=== PATIENT | male | born 1985 | race Caucasian/White ===

== ENCOUNTER 2018-11-12 17:07 | Inpatient (IN) | payer BC, OTHER ==
[~2018-11-12] VITALS: Ht 185.4 cm; Wt 109.4 kg
[2018-11-12] VITALS (7 sets, daily range): BP systolic 120–133; BP diastolic 63–69; PULSE 54–62; RESP 17–23; Ht 185.4 cm; Wt 109.4 kg
[~2018-11-12 17:07] MED LIST: CEFAZOLIN 1 GM INJ ONE; DESFLURANE 15 MIN ONE; ISOFLURANE 15 MIN ONE; SUCCINYLCHOLINE CHLORIDE 100 MG/5 ML SYG IV ONE
[2018-11-12] MEDS ORDERED: SOD CHLORIDE 0.9% 1,000 ML IV STA (19:43)
--- NOTE | 2018-11-12 20:49 | ERD ---
ER Documentation Chief Complaint Chief Complaint L/R/Q abd pain x yesterday denies pain with urination HPI Patient is a 32-year-old male presents to the ED with sudden onset sharp 7/10 right lower quadrant abdominal pain since last night. Patient states pain is mostly localized to his right lower quadrant but does radiate towards his periumbilical region. He does report one episode of nonbilious non-vomiting this morning. He also had a low-grade fever which he took Motrin for. He does report a history of left inguinal hernia repair several years prior but otherwise has no other abdominal surgeries. He tried smoking marijuana this morning to help with his pain with minimal relief. Patient also reports using cocaine 2 days ago but otherwise denies any illicit drug use. Denies any chest pain, shortness of breath, diarrhea, constipation, urinary frequency, urgency or any other symptoms. Patient last ate leftover [place] food this morning at 7:30 AM. ROS All systems reviewed and are negative except as per history of present illness. Allergies Allergies: Coded Allergies: No Known Drug Allergies (Verified Allergy, Unknown, 06/19/07) PMhx/Soc Medical and Surgical Hx: pt denies Medical Hx History of Surgery: Yes (L inguinal hernia) Anesthesia Reaction: No Hx Alcohol Use: Yes (socially) Hx Substance Use: Yes (cocaine rarely, marijuana) Hx Tobacco Use: No Smoking Status: Never smoker Physical Exam Vitals Vital Signs Date Temp Pulse Resp B/P (MAP) Pulse Ox O2 O2 Flow FiO2 Time Delivery Rate 11/12/18 99.7 119 18 159/73 95 17:10 (101) Physical Exam Const: + Appears uncomfortable. Head: Atraumatic Eyes: Normal Conjunctiva ENT: Normal External Ears, Nose and Mouth. Neck: Full range of motion. No meningismus. Resp: Clear to auscultation bilaterally Cardio: Regular rate and rhythm, no murmurs Abd: + Moderate right lower quadrant tenderness, with rebound and guarding. Positive McBurney's point tenderness. Negative Rovsing's. No distention. Soft. Hyperactive bowel sounds. Skin: No petechiae or rashes Back: No midline or flank tenderness Ext: No cyanosis, or edema Neur: Awake and alert Psych: Normal Mood and Affect Result Diagram: 11/12/182010 Results 24 hrs Laboratory Tests Test 11/12/18 19:41 11/12/18 20:11 Urine Color YELLOW Urine Clarity CLEAR Urine pH 6.0 Urine Specific [place] 1.028 Urine Ketones NEGATIVE mg/dL Urine Nitrite NEGATIVE mg/dL Urine Bilirubin NEGATIVE mg/dL Urine Urobilinogen NEGATIVE mg/dL Urine Leukocyte Esterase NEGATIVE [place]/ul Urine Hemoglobin NEGATIVE mg/dL Urine Glucose NEGATIVE mg/dL Urine Total Protein NEGATIVE mg/dl White Blood Count 15.4 10^3/ul Red Blood Count 5.24 10^6/ul Hemoglobin 14.9 g/dl Hematocrit 44.6 % Mean Corpuscular Volume 85.1 fl Mean Corpuscular Hemoglobin 28.4 pg Mean Corpuscular Hemoglobin Concent 33.4 g/dl Red Cell Distribution Width 12.9 % Platelet Count 266 10^3/UL Mean Platelet Volume 10.6 fl Immature Granulocytes % 0.600 % Neutrophils % 77.9 % Lymphocytes % 9.4 % Monocytes % 11.2 % Eosinophils % 0.4 % Basophils % 0.5 % Nucleated Red Blood Cells % 0.0 /100WBC Immature Granulocytes # 0.090 10^3/ul Neutrophils # 12.0 10^3/ul Lymphocytes # 1.5 10^3/ul Monocytes # 1.7 10^3/ul Eosinophils # 0.1 10^3/ul Basophils # 0.1 10^3/ul Nucleated Red Blood Cells # 0.0 10^3/ul Current Medications Medications Dose Sig/Maxwell Start Time Status Last (Trade) Ordered Route PRN Stop Time Admin Dose Reason Admin Sodium 1,000 ml @ Q1H STAT 11/12/18 DC 11/12/18 Chloride 1,000 mls/hr IV 19:43 20:08 11/12/18 20:42 Piperacillin 100 ml @ ONCE ONCE 11/12/18 11/12/18 Sod/ 200 mls/hr IVPB 21:00 20:59 Tazobactam 11/12/18 21:29 Sod Ondansetron 2 mg ONCE STAT 11/12/18 DC 11/12/18 HCl (Zofran IV 20:59 21:06 Inj) 11/12/18 21:02 Morphine 2 mg ONCE STAT 11/12/18 DC 11/12/18 Sulfate IV 20:59 21:06 (morphine) 11/12/18 21:02 Procedures/MDM EMERGENT LABS AND DIAGNOSTIC STUDIES: Lab Results above were reviewed and interpreted by me as below. Lab Results above were reviewed and interpreted by me as below. CBC: WBC of 15.4 with a left shift. CMP: no e/o severe acidosis, alkalosis, renal failure, diabetic ketoacidosis, liver disease Urine: no e/o acute infection or hematuria PT/PTT: pending Otherwise within normal limits, unremarkable or as documented above. Radiology Results as interpreted by Radiology: PROCEDURE: CT abdomen and pelvis without contrast. CLINICAL INDICATION: 32-year-old male. Right lower quadrant abdominal pain. TECHNIQUE: CT scan of the abdomen and pelvis without contrast was performed on a multi-slice CT scanner utilizing axial imaging from the lung bases through the pubis symphysis. One or more the following does reduction techniques were utilized: Automated exposure control, adjustment of the mA/ or kV according to patient's size, or use of iterative reconstruction technique. Sagittal and coronal reformatted images were made. DICOM images are available for review. The CTDIvol is 21.22 mGy and the DLP is 13 15.28 mGycm. COMPARISON: None. FINDINGS: CT abdomen Visualized lung bases: Clear. No significant pleural or pericardial effusion. Liver: Limited evaluation without IV contrast. 11.3 mm low attenuation mass medial segment 6. Gallbladder and bile ducts: No calcified gallstones or pericholecystic fluid. No biliary ductal dilatation. Spleen: Normal appearance. Pancreas: Normal appearance. No ductal dilatation. No mass. No peripancreatic stranding. Adrenal glands: Normal appearance. Kidneys: No hydronephrosis or renal stones. Vasculature: No abdominal aortic aneurysm. Calcified plaque absent. Negative IVC. Lymph nodes: No adenopathy. GI: No evidence of obstruction or bowel wall thickening. Peritoneal cavity: No free fluid or free air. CT pelvis GI: Negative terminal ileum. Abnormal appendix. 2 appendicoliths, largest measuring 8.3 mm. Appendix measures 10.3 mm in diameter with periappendiceal inflammatory changes. No abscess or drainable fluid collection. Sigmoid diverticulosis. Negative rectum. : Genitourinary structures are unremarkable. Peritoneal cavity: No free fluid or loculated fluid collections. Lymph nodes: Small lymph nodes adjacent to the inflamed appendix. Osseous structures: No lytic or blastic lesions. IMPRESSION: 1. Acute appendicitis. No evidence of perforation, abscess or drainable fluid collection. Critical results given to Dr. Higgins at [facility] ED at 2 hours P S T. Nursing Notes Reviewed. Previous Medical Records requested via the Electronic Health Record. EMERGENCY DEPARTMENT COURSE / MEDICAL DECISION MAKING: Patient is a 32-year-old male who presents to the ED with complaints of right lower quadrant pain suspicious for appendicitis. CBC shows a white count of 15.4. Remaining labs including CMP, UA was insignificant, coag panel is pending. CT of the abdomen pelvis confirmed acute appendicitis, no perforation or abscess. IV line was established and patient was started on IV fluids, Zofra n, morphine as well as Zosyn for empiric coverage. I discussed this with my supervising physician, Dr. Farris who will admit the patient to the admitting physician. I also discussed the case with the surgeon, Dr. Heath who will operate on the patient later this evening. Patient is stable at time of admission. Departure Diagnosis: Primary Impression: Acute appendicitis Condition: ZOE Marinelli PA-C Nov 12, 2018 20:49
[2018-11-12] MEDS ORDERED: ONDANSETRON 4 MG INJ IV STA (20:59)
[2018-11-12] MEDS ORDERED: morphine 2 MG INJ IV STA (20:59)
[2018-11-12] MEDS ORDERED: PIPER-TAZO 3.375 GM IV (PMX) 100 ML IVPB ONE (21:00)
[2018-11-12] MEDS ORDERED: SOD CHLORIDE 0.9% 1,000 ML IV SCH (21:17)
--- NOTE | 2018-11-12 21:19 | HP ---
Date/Time of Note Date/Time of Note DATE: 11/12/18 TIME: 21:19 Assessment/Plan VTE Prophylaxis SCD applied (from Nsg): Yes Pharmacological prophylaxis: NA/contraindicated Pharm contraindication: low risk/ambulating Lines/Catheters IV Catheter Type (from Nrsg): Saline Lock Assessment/Plan Hospital Course This is a 32-year-old male being admitted to the [facility] floor for: #1 acute appendicitis: The patient n.p.o., Zosyn IV every 6 hours, normal saline for fluid management. Dr. Heath of general surgery has been consulted, will await further recommendations. #2 obesity: We will check hemoglobin A 1C, lipid panel, TSH #3 illicit drug use: Recommend cessation #4 DVT GI prophylaxis: SCDs, no GI prophylaxis indicated further treatment strategy will be implemented as per the clinical course Result Diagram: 11/12/18201011/12/182010 Results 24hrs Laboratory Tests Test 11/12/18 19:41 11/12/18 20:11 Urine Color YELLOW Urine Clarity CLEAR Urine pH 6.0 Urine Specific [place] 1.028 Urine Ketones NEGATIVE Urine Nitrite NEGATIVE Urine Bilirubin NEGATIVE Urine Urobilinogen NEGATIVE Urine Leukocyte Esterase NEGATIVE Urine Hemoglobin NEGATIVE Urine Glucose NEGATIVE Urine Total Protein NEGATIVE White Blood Count 15.4 H Red Blood Count 5.24 Hemoglobin 14.9 Hematocrit 44.6 Mean Corpuscular Volume 85.1 Mean Corpuscular Hemoglobin 28.4 L Mean Corpuscular Hemoglobin Concent 33.4 Red Cell Distribution Width 12.9 Platelet Count 266 Mean Platelet Volume 10.6 H Immature Granulocytes % 0.600 H Neutrophils % 77.9 H Lymphocytes % 9.4 L Monocytes % 11.2 H Eosinophils % 0.4 Basophils % 0.5 Nucleated Red Blood Cells % 0.0 Immature Granulocytes # 0.090 H Neutrophils # 12.0 H Lymphocytes # 1.5 Monocytes # 1.7 H Eosinophils # 0.1 Basophils # 0.1 Nucleated Red Blood Cells # 0.0 Sodium Level 142 Potassium Level 4.1 Chloride Level 103 Carbon Dioxide Level 29 Anion Gap 10 Blood Urea Nitrogen 14 Creatinine 1.07 Est Glomerular Filtrat Rate mL/min > 60 Glucose Level 101 Calcium Level 9.9 Total Bilirubin 0.7 Direct Bilirubin 0.00 Indirect Bilirubin 0.7 Aspartate Amino Transf (AST/SGOT) 34 Alanine Aminotransferase (ALT/SGPT) 37 Alkaline Phosphatase 91 Total Protein 7.7 Albumin 4.6 Globulin 3.10 Albumin/Globulin Ratio 1.48 Lipase 193 HPI/ROS Admit Date/Time Admit Date/Time Hx of Present Illness cc: right lower ab pain Patient is a 32-year-old male presents to the ED with sudden onset sharp 7/10 right lower quadrant abdominal pain since last night. Patient states pain is mostly localized to his right lower quadrant but does radiate towards his periumbilical region. He does report one episode of nonbilious non-vomiting this morning. He also had a low-grade fever which he took Motrin for. He does report a history of left inguinal hernia repair several years prior but otherwise has no other abdominal surgeries. He tried smoking marijuana this morning to help with his pain with minimal relief. Patient also reports using cocaine 2 days ago but otherwise denies any illicit drug use. Denies any chest pain, shortness of breath, diarrhea, constipation, urinary frequency, urgency or any other symptoms. Patient last ate leftover [place] food this morning at 7:[address] scan of the abdomen pelvis was performed which confirmed acute appendicitis. Dr. Heath of general surgery has been consulted. Last cocaine use on Tuesday. alllergies: nkda meds: none ROS Const: As per HPI Eyes : No pain discharge or redness or change in visual acuity ENT: No pain, sore throat, congestion, congestion, dysphagia or discharge Respiratory: No shortness of breath, cough, sputum, wheezing, or pleuritic pain Cardiovascular: No chest pain, palpitation, PND, or edema GI : as per HPI Genitourinary: No dysuria, hematuria, flank pain , discharge or CVA tenderness Musculoskeletal: No joint pain, back pain, neck pain, restricted range of motion in neck or joints Skin: No rash, bruising or hives Neuro: No headache, dizziness, syncope, seizure, focal weakness Endocrine: No polyuria, polydipsia, temperature intolerance Psych: No hallucination, depression, anxiety or suicidal ideation PMH/Family/Social Past Medical History Medical History: no pertinent history Medications Current Medications Piperacillin Sod/ Tazobactam Sod 100 ml @ 200 mls/hr ONCE ONCE IVPB Last administered on 11/12/18at 20:59; Admin Dose 200 MLS/HR; Start 11/12/18 at 21:00; Stop 11/12/18 at 21:29 Coded Allergies: No Known Drug Allergies (Verified Allergy, Unknown, 06/19/07) Past Surgical History Left inguinal hernia repair, right shoulder surgery Family History Significant Family History: no pertinent family hx Social History Alcohol Use: none Smoking Status: Never smoker Drug Use: cocaine, marijuana Exam/Review of Systems Vital Signs Vitals Vital Signs Date Temp Pulse Resp B/P (MAP) Pulse Ox O2 O2 Flow FiO2 Time Delivery Rate 11/12/18 99.7 119 18 159/73 95 17:10 (101) Exam Exam General: Patient currently lying in bed in mild distress from abdominal pain HEENT: Atraumatic, normocephalic. The pupils are equal, round and reactive. Extraocular motor are intact Neck: Supple with full range of motion. No rigidity or meningismus Chest: Nontender Lungs: Clear to auscultation bilaterally no crackles rales or wheezing Heart: Normal S1-S2, Regular rhythm and rate. No murmur, S3, or S4 Abdomen: Tenderness of the right lower quadrant as well as left lower quadrant soft , nondistended , bowel sounds are present. No guarding no rebound tenderness , No masses or organomegaly. No costovertebral temporal angle mass Extremities: Normal to inspection, no edema no cyanosis Neurologic: Normal mental status, speech normal, cranial nerves II through XII are intact, motor and sensory are intact, no focal weakness Additional Comments PROCEDURE: CT abdomen and pelvis without contrast. CLINICAL INDICATION: 32-year-old male. Right lower quadrant abdominal pain. TECHNIQUE: CT scan of the abdomen and pelvis without contrast was performed on a multi-slice CT scanner utilizing axial imaging from the lung bases through the pubis symphysis. One or more the following does reduction techniques were utilized: Automated exposure control, adjustment of the mA/ or kV according to patient's size, or use of iterative reconstruction technique. Sagittal and coronal reformatted images were made. DICOM images are available for review. The CTDIvol is 21.22 mGy and the DLP is 13 15.28 mGycm. COMPARISON: None. FINDINGS: CT abdomen Visualized lung bases: Clear. No significant pleural or pericardial effusion. Liver: Limited evaluation without IV contrast. 11.3 mm low attenuation mass medial segment 6. Gallbladder and bile ducts: No calcified gallstones or pericholecystic fluid. No biliary ductal dilatation. Spleen: Normal appearance. Pancreas: Normal appearance. No ductal dilatation. No mass. No peripancreatic stranding. Adrenal glands: Normal appearance. Kidneys: No hydronephrosis or renal stones. Vasculature: No abdominal aortic aneurysm. Calcified plaque absent. Negative IVC. Lymph nodes: No adenopathy. GI: No evidence of obstruction or bowel wall thickening. Peritoneal cavity: No free fluid or free air. CT pelvis GI: Negative terminal ileum. Abnormal appendix. 2 appendicoliths, largest measuring 8.3 mm. Appendix measures 10.3 mm in diameter with periappendiceal inflammatory changes. No abscess or drainable fluid collection. Sigmoid diverticulosis. Negative rectum. : Genitourinary structures are unremarkable. Peritoneal cavity: No free fluid or loculated fluid collections. Lymph nodes: Small lymph nodes adjacent to the inflamed appendix. Osseous structures: No lytic or blastic lesions. IMPRESSION: 1. Acute appendicitis. No evidence of perforation, abscess or drainable fluid collection. Critical results given to Dr. Higgins at [facility] ED at 2022 hours P S T. RPTAT: HLRS Physician Gabe Date Time Electronically viewed and signed by Shimon Rayo Physician on 11/12/2018 20:26 RS/ CC: ZOE WOLFE PA-C [id number] PERRY PIERSON Nov 12, 2018 21:19
[2018-11-12] MEDS ORDERED: ACETAMINOPHEN 325 MG TAB PO PRN ×2 (21:30→22:30)
[2018-11-12] MEDS ORDERED: ONDANSETRON 4 MG INJ IV PRN ×3 (21:30→22:30)
[2018-11-12] MEDS ORDERED: morphine 2 MG INJ IV PRN ×2 (21:30→22:30)
[2018-11-12] MEDS ORDERED: NACL 0.9% 3 ML SYG IV SCH (21:30)
--- NOTE | 2018-11-12 22:04 | PREAC ---
Date/Time of Note Date/Time of Note DATE: 11/12/18 TIME: 22:03 Anesthesia Eval and Record Evaluation Time Pre-Procedure Interview DATE: 11/12/18 TIME: 22:03 Age 32 Sex male NPO: 6 hrs chips att [id number] Preoperative diagnosis acute appendicitis Planned procedure Acute appendicts Past Medical History Past Medical History: Includes Pulm: Asthma Surgery & Anesthesia Issues No known issue Meds Anticoagulation: No Beta Farhan within 24 hr: No Reason Beta Farhan not given: Pt. not on B-Farhan Current Medications Sodium Chloride 1,000 ml @ 100 mls/hr Q10H IV ; Start 11/12/18 at 21:17 IV Flush (NS 3 ml) 3 ml PER PROTOCOL IV ; Start 11/12/18 at 21:30 Ondansetron HCl (Zofran Inj) 4 mg Q6H PRN IV NAUSEA/VOMITING; Start 11/12/18 at 21:30 Acetaminophen (Tylenol Tab) 650 mg Q6H PRN PO .PAIN 1-3 OR TEMP; Start 11/12/18 at 21:30 Morphine Sulfate (morphine) 2 mg Q4H PRN IV .SEVERE PAIN 7-10; Start 11/12/18 at 21:30 Meds reviewed: Yes Allergies Coded Allergies: No Known Drug Allergies (Verified Allergy, Unknown, 06/19/07) Allergies Reviewed: Yes Labs/Studies Labs Reviewed: Reviewed by anesthesiologist Result Diagram: 11/12/18201011/12/182010 Laboratory Tests 11/12/18 20:11 test: N/A Studies: ECG (n/a), CXR (n/a) Pre-procedure Exam Last vitals Vital Signs Date Temp Pulse Resp B/P (MAP) Pulse Ox O2 O2 Flow FiO2 Time Delivery Rate 11/12/18 98.2 80 19 132/74 98 Room Air 21:33 (93) Airway: Adequate mouth opening Mallampati: Mallampati II Teeth: Normal Lung: Normal Heart: Normal ASA Physical Status ASA physical status: 2 Emergency: E Planned Anesthetic General/MAC: ETT Nerve block: TAP (bilateral) Planned Pain Management Single shot nerve block Pre-operative Attestations Prior to commencing anesthesia and surgery, the patient was re-evaluated, there was verification of: *The patient's identity *The results of appropriate recent lab work and preoperative vital signs *The above evaluation not changing prior to induction *Anesthetic plan, risk benefits, alternative and complications discussed with p atient/family; questions answered; patient/family understands, accepts and wishes to proceed. EL PALUMBO MD Nov 12, 2018 22:04
--- NOTE | 2018-11-12 22:04 | CONS ---
Assessment/Plan Assessment/Plan Assessment/Plan (Daily) Acute appendicitis I discussed laparoscopic, possible open, appendectomy with the patient. All be nefits, risks, alternatives discussed in detail. All questions answered. The patient elects to proceed. Consultation Date/Type/Reason Admit Date/Time Date/Time of Note DATE: 11/12/18 TIME: 22:02 Hx of Present Illness The patient is a 32-year-old male who developed acute onset of abdominal pain yesterday. His symptoms worsened overnight and localized to right lower quadrant. He had nausea as well as emesis. He had a tactile fever. He presented to the ER. His workup was consistent with acute appendicitis. I was called for consultation. 14 point review of systems was performed. Pertinent negatives and positives per HPI per Past Medical History Medical History: no pertinent history Medications Current Medications Sodium Chloride 1,000 ml @ 100 mls/hr Q10H IV ; Start 11/12/18 at 21:17 IV Flush (NS 3 ml) 3 ml PER PROTOCOL IV ; Start 11/12/18 at 21:30 Ondansetron HCl (Zofran Inj) 4 mg Q6H PRN IV NAUSEA/VOMITING; Start 11/12/18 at 21:30 Acetaminophen (Tylenol Tab) 650 mg Q6H PRN PO .PAIN 1-3 OR TEMP; Start 11/12/18 at 21:30 Morphine Sulfate (morphine) 2 mg Q4H PRN IV .SEVERE PAIN 7-10; Start 11/12/18 at 21:30 Allergies: Coded Allergies: No Known Drug Allergies (Verified Allergy, Unknown, 06/19/07) Past Surgical History Past Surgical Hx: other (Labral tear surgery, left inguinal hernia surgery) Family History Significant Family History: no pertinent family hx Social History Alcohol Use: heavy (Approximately 12 drinks per week) Smoking Status: Never smoker Exam/Review of Systems Exam Vitals Vital Signs Date Temp Pulse Resp B/P (MAP) Pulse Ox O2 O2 Flow FiO2 Time Delivery Rate 11/12/18 98.2 80 19 132/74 98 Room Air 21:33 (93) Constitutional: alert, oriented Psych: no complaints Head: normocephalic, atraumatic Eyes: nl conjunctiva, EOMI, nl lids Neck: supple, non-tender Respiratory: clear to auscultation, normal air movement Cardiovascular: regular rate and rhythm, nl pulses Gastrointestinal: soft, other (Mildly distended, significant right lower quadrant tenderness) Musculoskeletal: nl extremities to inspection Extremities: normal pulses 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, nl mental status, nl speech Skin: nl turgor, rash or lesions Lymph: nl lymph nodes Results Result Diagram: 11/12/18201011/12/182010 Results 24hrs Laboratory Tests Test 11/12/18 19:41 11/12/18 20:11 Urine Color YELLOW Urine Clarity CLEAR Urine pH 6.0 Urine Specific [place] 1.028 Urine Ketones NEGATIVE Urine Nitrite NEGATIVE Urine Bilirubin NEGATIVE Urine Urobilinogen NEGATIVE Urine Leukocyte Esterase NEGATIVE Urine Hemoglobin NEGATIVE Urine Glucose NEGATIVE Urine Total Protein NEGATIVE White Blood Count 15.4 H Red Blood Count 5.24 Hemoglobin 14.9 Hematocrit 44.6 Mean Corpuscular Volume 85.1 Mean Corpuscular Hemoglobin 28.4 L Mean Corpuscular Hemoglobin Concent 33.4 Red Cell Distribution Width 12.9 Platelet Count 266 Mean Platelet Volume 10.6 H Immature Granulocytes % 0.600 H Neutrophils % 77.9 H Lymphocytes % 9.4 L Monocytes % 11.2 H Eosinophils % 0.4 Basophils % 0.5 Nucleated Red Blood Cells % 0.0 Immature Granulocytes # 0.090 H Neutrophils # 12.0 H Lymphocytes # 1.5 Monocytes # 1.7 H Eosinophils # 0.1 Basophils # 0.1 Nucleated Red Blood Cells # 0.0 Prothrombin Time 12.9 Prothrombin Time Ratio 1.0 INR International Normalized Ratio 0.96 Activated Partial Thromboplast Time 27.0 Sodium Level 142 Potassium Level 4.1 Chloride Level 103 Carbon Dioxide Level 29 Anion Gap 10 Blood Urea Nitrogen 14 Creatinine 1.07 Est Glomerular Filtrat Rate mL/min > 60 Glucose Level 101 Calcium Level 9.9 Total Bilirubin 0.7 Direct Bilirubin 0.00 Indirect Bilirubin 0.7 Aspartate Amino Transf (AST/SGOT) 34 Alanine Aminotransferase (ALT/SGPT) 37 Alkaline Phosphatase 91 Total Protein 7.7 Albumin 4.6 Globulin 3.10 Albumin/Globulin Ratio 1.48 Lipase 193 Imaging Imaging Patient: STEVE HALL : 1985 Age: 32 Sex: M MR #: [id number] DOS: 11/12/18 193 Ordering MD: ZOE WOLFE PA-C Location: [facility] Room/Bed: PROCEDURE: CT abdomen and pelvis without contrast. CLINICAL INDICATION: 32-year-old male. Right lower quadrant abdominal pain. TECHNIQUE: CT scan of the abdomen and pelvis without contrast was performed on a multi-slice CT scanner utilizing axial imaging from the lung bases through the pubis symphysis. One or more the following does reduction techniques were utilized: Automated exposure control, adjustment of the mA/ or kV according to patient's size, or use of iterative reconstruction technique. Sagittal and coronal reformatted images were made. DICOM images are available for review. The CTDIvol is 21.22 mGy and the DLP is 13 15.28 mGycm. COMPARISON: None. FINDINGS: CT abdomen Visualized lung bases: Clear. No significant pleural or pericardial effusion. Liver: Limited evaluation without IV contrast. 11.3 mm low attenuation mass medial segment 6. Gallbladder and bile ducts: No calcified gallstones or pericholecystic fluid. No biliary ductal dilatation. Spleen: Normal appearance. Pancreas: Normal appearance. No ductal dilatation. No mass. No peripancreatic stranding. Adrenal glands: Normal appearance. Kidneys: No hydronephrosis or renal stones. Vasculature: No abdominal aortic aneurysm. Calcified plaque absent. Negative IVC. Lymph nodes: No adenopathy. GI: No evidence of obstruction or bowel wall thickening. Peritoneal cavity: No free fluid or free air. CT pelvis GI: Negative terminal ileum. Abnormal appendix. 2 appendicoliths, largest measuring 8.3 mm. Appendix measures 10.3 mm in diameter with periappendiceal inflammatory changes. No abscess or drainable fluid collection. Sigmoid diverticulosis. Negative rectum. : Genitourinary structures are unremarkable. Peritoneal cavity: No free fluid or loculated fluid collections. Lymph nodes: Small lymph nodes adjacent to the inflamed appendix. Osseous structures: No lytic or blastic lesions. IMPRESSION: 1. Acute appendicitis. No evidence of perforation, abscess or drainable fluid c ollection. [place] [facility] [place] 2 [place] P S T. RPTAT: HL[facility] Physician Gabe Date Time Electronically viewed and signed by Physician Gabe on 11/12/2018 2 0:26 RS/ Medications Medication Current Medications Sodium Chloride 1,000 ml @ 100 mls/hr Q10H IV ; Start 11/12/18 at 21:17 IV Flush (NS 3 ml) 3 ml PER PROTOCOL IV ; Start 11/12/18 at 21:30 Ondansetron HCl (Zofran Inj) 4 mg Q6H PRN IV NAUSEA/VOMITING; Start 11/12/18 at 21:30 Acetaminophen (Tylenol Tab) 650 mg Q6H PRN PO .PAIN 1-3 OR TEMP; Start 11/12/18 at 21:30 Morphine Sulfate (morphine) 2 mg Q4H PRN IV .SEVERE PAIN 7-10; Start 11/12/18 at 21:30 STEVE HILLIARD MD Nov 12, 2018 22:04
[2018-11-12] MEDS ORDERED: ROCURONIUM 50 MG INJ ONE (22:15)
[2018-11-12] MEDS ORDERED: PROPOFOL 20 ML ONE (22:15)
[2018-11-12] MEDS ORDERED: MIDAZOLAM 1 MG/ML 2 ML INJ ONE (22:17)
[2018-11-12] MEDS ORDERED: ONDANSETRON 4 MG INJ ONE (22:17)
[2018-11-12] MEDS ORDERED: METOCLOPRAMIDE 10 MG INJ ONE (22:17)
[2018-11-12] MEDS ORDERED: ROPIVACAINE 0.5 % 30 ML VIAL ONE (22:17)
--- NOTE | 2018-11-12 22:18 | OPR ---
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 He presented to the ER and her workup was consistent with acute appendicitis. I discussed laparoscopic, p ossible open appendectomy the patient and all benefits, risks, alternatives discussed in detail. All questions were answered. The patient elected to proceed. Procedure Description The patient was brought to operative room placed supine on the table. After preop antibiotics and SCDs were applied, the patient was intubated. The abdomen was cleaned, prepped, draped usual sterile fashion. All incisions were demonstrated with half percent lidocaine prior to incision. A 5 mm incision was made in the umbilicus. Using a 5 by laparoscope obtained trocar, the abdomen was entered under direct vision insufflated 15 mmHg of CO2.. A right lower quadrant 5 mm and left lower quadrant 12 mm trocar were placed on direct vision. Imaging from the cecum, was an obvious acute appendicitis. It was not ruptured or perforated. I made a rent in the mesentery at the base of the appendix and divided the cecum with a 45 mm Endo linear cutter blue load. The appendiceal mesentery was then divided with a 45 mm Endo linear cutter white load. The appendix was placed in Endo Catch bag removed the 12 trocar site. I irrigated and aspirated out the right lower quadrant and pelvis effluent was clear. My staple lines were hemostatic. This point the abdomen was desufflated and all trochars removed. The fascia of the problem trocar site was closed 0 Vicryl. Skin incisions were closed with 4 Monocryl, Mastisol, and Steri-Strips. The patient tolerated the procedure well, was extubated in the OR, transferred to recovery in stable condition STEVE HILLIARD MD Nov 12, 2018 22:18
--- NOTE | 2018-11-12 22:19 | SIPON ---
Date/Time of Note Date/Time of Note DATE: 11/12/18 TIME: 22:18 Operative Report Preoperative Diagnosis Acute appendicitis Postoperative Diagnosis Same Operation/Procedure Performed Laparoscopic appendectomy Surgeon see signature line server assistant None Anesthesia: general Estimated blood loss: minimal Transfusion Required none Specimen Appendix Grafts/Implants none Complications none STEVE HILLIARD MD Nov 12, 2018 22:19
[2018-11-12] MEDS ORDERED: LIDOCAINE 1%/EPI (1:100,000) (MDV) 20 ML ONE (22:23)
[2018-11-12] MEDS ORDERED: BUPIVACAINE 0.25% (MPF) 30 ML INJ ONE (22:23)
[2018-11-12] MEDS ORDERED: HYDROmorphONE 1 MG/5 ML IV SYRINGE IV PRN ×3 (22:30)
[2018-11-12] MEDS ORDERED: OXYCODONE/ACETAMINOPHEN (5/325) TAB PO PRN (22:30)
[2018-11-12] MEDS ORDERED: MEPERIDINE 25 MG INJ IV PRN (22:30)
[2018-11-12] MEDS ORDERED: hydrALAzine 20 MG INJ IV PRN (22:30)
[2018-11-12] MEDS ORDERED: KETOROLAC 30 MG INJ IV PRN (22:30)
[2018-11-12] MEDS ORDERED: LABETALOL HCL 20MG INJ IV PRN (22:30)
[2018-11-12] MEDS ORDERED: DIPHENHYDRAMINE 50 MG INJ IV PRN (22:30)
[2018-11-12] MEDS ORDERED: NEOSTIGMINE 10 MG INJ ONE (22:58)
[2018-11-12] MEDS ORDERED: METOPROLOL 5 MG INJ ONE (23:03)
[2018-11-12] MEDS ORDERED: FENTAnyl 50 MCG/ML VIAL ONE (23:08)
[2018-11-12] MEDS ORDERED: GLYCOPYRROLATE 0.4 MG INJ ONE (23:23)
[2018-11-12] MEDS ORDERED: MEPERIDINE 100 MG INJ ONE (23:24)
[2018-11-13 00:02] VITALS: BP 134/68; PULSE 60; RESP 18
[2018-11-13 00:07] VITALS: BP 132/63; PULSE 60; RESP 18
[2018-11-13] MEDS: KETOROLAC 30 MG INJ IV SCH ×3 (01:39→10:37)
[2018-11-13] MEDS: D5-NS + KCL 20 MEQ 1,000 ML IV SCH ×2 (01:39→08:19)
[2018-11-13] MEDS: PIPER-TAZO 3.375 GM IV (PMX) 100 ML IVPB SCH ×2 (01:40→05:42)
[2018-11-13 01:53] VITALS: BP 141/72; PULSE 90; RESP 18
[2018-11-13] MEDS ORDERED: ENOXAPARIN 40 MG/0.4 ML SYG SC ONE (05:41)
[2018-11-13] MEDS ORDERED: ENOXAPARIN 40 MG/0.4 ML SYG SC SCH (07:00)
[2018-11-13 08:35] VITALS: BP 112/61; PULSE 58; RESP 18
--- NOTE | 2018-11-13 09:44 | PN ---
Date/Time of Note Date/Time of Note DATE: 11/13/18 TIME: 09:42 Assessment/Plan Lines/Catheters IV Catheter Type (from Nrsg): Peripheral IV Dozier in Place (from Nrsg): No Assessment/Plan Assessment/Plan Postop day #1 status post lap appendectomy WBC decreasing and afebrile overnight. OK to discharge today. Subjective 24 Hr Interval Summary Constitutional: no complaints, improved Feeding: advancing diet Pain Control: well controlled Exam/Review of Systems Vital Signs Vitals Vital Signs Date Temp Pulse Resp B/P (MAP) Pulse Ox O2 O2 Flow FiO2 Time Delivery Rate 11/13/18 97.6 58 18 112/61 97 08:35 (78) 11/13/18 Nasal 00:07 Cannula Intake and Output 11/12/18 11/12/18 11/13/18 1515:00 23:00 07:00 IntakeIntake Total 1200 ml OutputOutput Total 305 ml BalanceBalance 895 ml Exam Constitutional: alert, oriented, well developed Neck: supple Respiratory: clear to auscultation Cardiovascular: regular rate and rhythm Gastrointestinal: soft, other (Some emi-incisional tenderness) Results Result Diagram: 11/13/18 0456 11/13/18 0456 STEVE HILLIARD MD Nov 13, 2018 09:44
--- NOTE | 2018-11-13 10:30 | PAC ---
Date/Time of Note Date/Time of Note DATE: 11/13/18 TIME: 10:30 Post-Anesthesia Notes Post-Anesthesia Note Last documented vital signs Vital Signs Date Temp Pulse Resp B/P (MAP) Pulse Ox O2 O2 Flow FiO2 Time Delivery Rate 11/13/18 97.6 58 18 112/61 97 08:35 (78) 11/13/18 Nasal 00:07 Cannula Activity: WNL Respiratory function: WNL Cardiovascular function: WNL Mental status: Baseline Pain reasonably controlled: Yes Hydration appropriate: Yes Nausea/Vomiting absent: No EL PALUMBO MD Nov 13, 2018 10:30
--- NOTE | 2018-11-13 10:37 | PDOCDIS ---
Discharge Instructions CONDITION [id number] Patient Condition: Paohc9g Stable ACTIVITY: [id number] Activity Restrictions: [id number] Slowly Increase Activity Rest between Activity Avoid heavy lifting No Sexual Activity Do not operate Machinery FOLLOW UP/APPOINTMENTS Follow-up Plan Please follow-up with your primary care provider and also with Dr. Alexei Heath, general surgeon, within 1-2 weeks for post operative care. RENEE YAO Nov 13, 2018 10:37
[2018-11-13] MEDS ORDERED: OXYC-279 PO (10:38)
--- NOTE | 2018-11-13 10:39 | DS ---
Date/Time of Note Date/Time of Note DATE: 11/13/18 TIME: 10:39 Discharge Summary Admission/Discharge Info Admit Date/Time Nov 13, 2018 at 00:00 Discharge Date/Time Patient Condition: Stable Hospital Course Patient is a male who presented to [facility] for abdominal pain. Patient was diagnosed with acute appendicitis, general surgeon saw patient and took patient to surgery for laparoscopic appendectomy, with no significant complications, patient was spent the night here in the hospital and was deemed okay to be discharged per general surgery this morning. Patient will follow up with general surgeon and primary care provider as soon as possible. Discharge diagnosis Acute appendicitis, status post lap appendectomy Obesity, mild Marijuana use Home Meds Active Scripts Oxycodone HCl/Acetaminophen (Percocet 5-325 mg Tablet) 1 Each Tablet, 1 EACH PO Q8, #10 TAB Prov:RENEE YAO J 11/13/18 Follow-up Plan Please follow-up with your primary care provider and also with Dr. Alexei Heath, general surgeon, within 1-2 weeks for post operative care. Primary Care Provider Not On Staff Doctor Time spent on discharge: > 30 minutes Pending Labs Laboratory Tests Test 11/12/18 19:41 11/12/18 20:11 11/13/18 04:56 Urine Color YELLOW (YELLOW) Urine Clarity CLEAR (CLEAR) Urine pH 6.0 (5.0-9.0) Urine Specific 1.028 (1.003-1.030) [place] Urine Ketones NEGATIVE mg/dL (NEGATIVE) Urine Nitrite NEGATIVE mg/dL (NEGATIVE) Urine Bilirubin NEGATIVE mg/dL (NEGATIVE) Urine Urobilinogen NEGATIVE mg/dL (NEGATIVE) Urine Leukocyte NEGATIVE [place]/ul Esterase Urine Hemoglobin NEGATIVE mg/dL (NEGATIVE) Urine Glucose NEGATIVE mg/dL (NEGATIVE) Urine Total NEGATIVE Protein mg/dl (NEGATIVE) White Blood Count 15.4 12.7 10^3/ul (4.8-10.8) 10^3/ul (4.8-10.8) Red Blood Count 5.24 4.44 10^6/ul (4.70-6.10 10^6/ul (4.70-6.10 ) ) Hemoglobin 14.9 12.7 g/dl (14.0-18.0) g/dl (14.0-18.0) Hematocrit 44.6 % (42.0-52.0) 38.2 % (42.0-52.0) Mean Corpuscular 85.1 86.0 Volume fl (82.0-101.0) fl (82.0-101.0) Mean Corpuscular 28.4 28.6 Hemoglobin pg (29.0-33.0) pg (29.0-33.0) Mean Corpuscular 33.4 33.2 Hemoglobin Concent g/dl (32.0-37.0) g/dl (32.0-37.0) Red Cell 12.9 % (11.5-14.5) 13.1 % (11.5-14.5) Distribution Width Platelet Count 266 216 10^3/UL (140-415) 10^3/UL (140-415) Mean Platelet 10.6 fl (7.4-10.4) 10.9 fl (7.4-10.4) Volume Immature 0.600 0.600 Granulocytes % % (0.001-0.429) % (0.001-0.429) Neutrophils % 77.9 % (39.0-77.0) 74.7 % (39.0-77.0) Lymphocytes % 9.4 % (15.0-51.0) 13.9 % (15.0-51.0) Monocytes % 11.2 % (0.0-11.0) 10.3 % (0.0-11.0) Eosinophils % 0.4 % (0.0-7.0) 0.2 % (0.0-7.0) Basophils % 0.5 % (0.0-2.0) 0.3 % (0.0-2.0) Nucleated Red Blood 0.0 0.0 Cells % /100WBC (0.0-0.0) /100WBC (0.0-0.0) Immature 0.090 0.070 Granulocytes # 10^3/ul (0.0-0.031 10^3/ul (0.0-0.031 ) ) Neutrophils # 12.0 9.5 10^3/ul (1.6-7.5) 10^3/ul (1.6-7.5) Lymphocytes # 1.5 1.8 10^3/ul (0.8-2.9) 10^3/ul (0.8-2.9) Monocytes # 1.7 1.3 10^3/ul (0.3-0.9) 10^3/ul (0.3-0.9) Eosinophils # 0.1 0.0 10^3/ul (0.0-0.5) 10^3/ul (0.0-0.5) Basophils # 0.1 0.0 10^3/ul (0.0-0.1) 10^3/ul (0.0-0.1) Nucleated Red Blood 0.0 0.0 Cells # 10^3/ul (0.0-0.0) 10^3/ul (0.0-0.0) Prothrombin Time 12.9 Sec (11.9-14.9) Prothrombin Time 1.0 Ratio INR International 0.96 Normalized Ratio Activated 27.0 Partial Thromboplas Sec (23.0-35.0) t Time Sodium Level 142 140 mmol/L (135-144) mmol/L (135-144) Potassium Level 4.1 3.9 mmol/L (3.5-5.1) mmol/L (3.5-5.1) Chloride Level 103 106 mmol/L (97-110) mmol/L (97-110) Carbon Dioxide 29 mmol/L (21-31) 28 mmol/L (21-31) Level Anion Gap 10 (5-13) 6 (5-13) Blood Urea 14 mg/dl (7-20) 12 mg/dl (7-20) Nitrogen Creatinine 1.07 1.17 mg/dl (0.61-1.24) mg/dl (0.61-1.24) Est Glomerular > 60 mL/min (>60) > 60 mL/min (>60) Filtrat Rate mL/min Glucose Level 101 mg/dl (70-220) 110 mg/dl (70-220) Calcium Level 9.9 8.8 mg/dl (8.4-10.2) mg/dl (8.4-10.2) Total Bilirubin 0.7 1.1 mg/dl (0.2-1.3) mg/dl (0.2-1.3) Direct Bilirubin 0.00 0.00 mg/dl (0.00-0.20) mg/dl (0.00-0.20) Indirect Bilirubin 0.7 mg/dl (0-1.1) 1.1 mg/dl (0-1.1) Aspartate Amino 34 IU/L (15-46) 47 IU/L (15-46) Transf (AST/SGOT) Alanine 37 IU/L (13-69) 33 IU/L (13-69) Aminotransferase (A LT/SGPT) Alkaline 91 IU/L (42-121) 63 IU/L (42-121) Phosphatase Total Protein 7.7 g/dl (6.1-8.1) 5.9 g/dl (6.1-8.1) Albumin 4.6 g/dl (3.3-4.9) 3.4 g/dl (3.3-4.9) Globulin 3.10 2.50 g/dl (1.3-3.2) g/dl (1.3-3.2) Albumin/Globulin 1.48 1.36 Ratio Lipase 193 U/L (23-300) Hemoglobin A1c 5.0 % (0-5.9) Magnesium Level 1.7 mg/dl (1.7-2.5) Triglycerides 55 mg/dl (0-149) Level Cholesterol Level 117 mg/dl (100-200) LDL Cholesterol, 62 mg/dl Calculated HDL Cholesterol 44 mg/dl (28-63) Cholesterol/HDL 2.6 RATIO Ratio Thyroid Stimulating 3.260 Hormone (TSH) MIU/L (0.465-4.680 ) RENEE YAO Nov 13, 2018 10:39
== END 2018-11-13 11:45 | disposition home or self-care (01) | DRG 343 ==
LOC: FTE 17:07 → SDS 22:25 → PP2 22:26 → SDS 23:08 → UNDOADMIN 11-13 → PP2 11-13 → UNDODISIN 11-13 11:45
PROVIDERS: ADMIT Family Medicine; ATTEND Family Medicine
PROC: 0DTJ4ZZ Resection of Appendix, Percutaneous Endoscopic Approach (ICD-10-PCS; principal; 2018-11-12 11:00)
DX: K35.80 Unspecified acute appendicitis (principal); F14.10 Cocaine abuse, uncomplicated; F12.10 Cannabis abuse, uncomplicated; F10.10 Alcohol abuse, uncomplicated; E66.9 Obesity, unspecified; Z68.31 Body mass index [BMI] 31.0-31.9, adult
CPT/HCPCS: 36415; 74176; 80053; 80061; 81003; 83036; 83690; 83735; 84443; 85025; 85610; 85730; 88304; 96374; 96375; J0690; J1650; J1885; J2175; J2250; J2270; J2405; J2543; J2710; J2765; J2795; J3010; J3480; J7030